=== PATIENT | male | born 1970 | race Caucasian/White ===

== ENCOUNTER 2017-06-27 01:41 | Emergency (ER) | payer BC ==
[~2017-06-27] VITALS: Ht 175.3 cm; Wt 86.2 kg
[~2017-06-27 01:41] MED LIST: ACTOS PO; ALBUTEROL17 GM INH; ANAPROX; ASPIRIN PO; AZITHROMYCIN250 MG PO; BAYER ASPIRIN325 M1 PO; BENZONATATE PO; CARVEDILOL12.5 MG PO; COLCRYS0.6 MG PO; COMBIVENT INH14.7 GM; COREG PO; COREG12.5 MG PO; COZAAR PO; EPIPEN0.3 MG/0.1 IM; FISH OIL 1,0001 CAP PO; FISH OIL 1,001000 M1 PO; FISH OIL 1,001000 MG PO; FLEXERIL PO; GLUCOPHAGE XR500 MG; GLUCOPHAGE XR500 MG PO; GLUCOPHAGE500 M1 PO; HUMALOG100 U/ML; IBUPROFEN PO; JANUVIA PO; KEFLEX500 M1 PO; LEVAQUIN PO; LEVEMIR SQ; LEVEMIR100 U/ML INJ; LEVEMIR100 UNITS/ SUBQ; LIPITOR PO; LISINOPRIL PO; LISINOPRIL10 MG PO; LORTAB 5/500 TA1 TA1 PO; METFORMIN HCL500 M1 PO; NAPROSYN500 MG PO; NOVOLOG100 U/M1 SQ; NOVOLOG100 U/M2 INJ; NOVOLOG100 U/M2 SQ; PEPCID AC20 M2 PO; PHENERGAN PO; PHENERGAN W/CO120 ML PO; PLAVIX PO; PREDNISONE PO; PRINIVIL10 MG PO; TRICOR PO; VIBRAMYCIN100 M1 PO; VICODIN 5/500 T1 TAB PO; ZESTORETIC 10/11 TAB; ZESTRIL10 M1 PO; ZITHROMAX; ZITHROMAX1 G/PKT PO; ZOCOR PO; [UNRECOGNIZED DRUG - OTHER] SUBQ
[2017-06-27] MEDS ORDERED: NOVOLOG100 UNITS/ SUBQ (01:50)
[2017-06-27] MEDS ORDERED: METFORMIN PO (01:50)
[2017-06-27] MEDS ORDERED: LEVEMIR100 UNITS/ SUBQ (01:50)
[2017-06-27] MEDS ORDERED: NEURONTIN100 MG PO (01:51)
[2017-06-27] MEDS ORDERED: LISINOPRIL PO (01:51)
[2017-06-27] MEDS ORDERED: ASPIRIN ENTERI325 M1 PO (01:51)
[2017-06-27] MEDS ORDERED: CARVEDILOL12.5 MG PO (01:51)
[2017-06-27] MEDS ORDERED: JANUVIA PO (01:52)
[2017-06-27] MEDS ORDERED: CLOPIDOGREL BIS75 MG PO (01:52)
[2017-06-27] MEDS ORDERED: SIMVASTATIN40 MG PO (01:52)
== END 2017-06-27 02:20 | disposition home or self-care (01) ==
LOC: SED 01:41
DX: T78.40XA Allergy, unspecified, initial encounter (principal); I10 Essential (primary) hypertension; E11.9 Type 2 diabetes mellitus without complications; Z91.030 Bee allergy status
CPT/HCPCS: 99282